=== PATIENT | female | born 1995 | race Caucasian/White ===

== ENCOUNTER 2017-11-10 20:03 | Outpatient (CLI) | payer OTHER, MEDICAID, SELFPAY | END 2017-11-10 21:15 | disposition home or self-care (01) | LOC: OB 11-12 08:52 | PROVIDERS: Family Provider Specialist; PCP Physician Assistant; Visit Provider Family Medicine | DX: Z34.83 Encounter for supervision of other normal pregnancy, third trimester (principal); Z3A.30 30 weeks gestation of pregnancy | CPT/HCPCS: 59025; G0378; G0379 ==

== ENCOUNTER → 2017-12-09 13:24 | Outpatient (CLI) | payer OTHER, MEDICAID, SELFPAY ==
--- NOTE | 2017-12-09 13:27 | DI.US.S_ITS ---
PROCEDURE: US OB >= 14 WEEKS FETUS INDICATIONS: ANATOMY OUTSIDE/PRIOR DATING DATA: Last menstrual period (LMP): 03/26/17. LMP-based estimated date of delivery (MARVIN): 12/31/17. First dating scan (date and location): 05/22/17 Estimated date of delivery (MARVIN) from first dating scan: 01/17/18. TECHNIQUE: Real-time scanning was performed of the fetus, with image documentation and biometric measurements. Endovaginal scanning: No COMPARISON: None. FINDINGS: General: A single living intrauterine gestation is present. Presentation: Vertex. Placenta: Placental position is anterior, without previa. Amniotic fluid index: 14.7 cm, normal range is 5-24 cm. heart rate: 130 beats per minute. Maternal cervical canal: 4 point cm long. Normal lower limit is 2.5 cm. biometrics: Biparietal diameter: 37 weeks Head circumference: 37 weeks 2 days Abdominal circumference: 34 weeks 4 days Femur length: 34 weeks 3 days Estimated gestational age from initial scan: 34 weeks 3 days Composite gestational age from present scan: 35 weeks 6 days Estimated weight and percentile: 2579 g; 63rd percentile Measurement variability for biometric dating: +/- 7 days from 14 weeks to 15 weeks 6 days gestation, +/- 10 days from 16 weeks to 21 weeks 6 days gestation, +/- 2 weeks from 22 weeks to 27 weeks 6 days gestation, +/- 3 weeks for 28 weeks gestation or later. weight reference: 4500 g or EFW >90/95% is considered macrosomia or large for gestational age. EFW <10% is small for gestational age. EFW 5% or less is considered intra-uterine growth restriction. Anatomic survey: Neuro: Not well-visualized. Nuchal skin fold: Not well-visualized. Face: Well-visualized. Spine: No evidence for spina bifida. Heart: 4-chambered heart is present, with normal ventricular outflow tracts. Diaphragm: Diaphragm is intact. Stomach: Left-sided stomach is present. Kidneys: No hydronephrosis. Normal is less than 5 mm in 2nd trimester, less than 7 mm in 3rd trimester. Cord: 3-vessel cord has orthotopic insertion. Bladder: Normal in size. Extremities: All 4 extremities identified. IMPRESSION: 1. Normal interval growth. 2. Anatomic survey as above. Dictated by: Casey JONES Interpreted: El Earl MD on 12/09/2017 at 15:27 Approved by: Lei Earl M.D. on 12/09/2017 at 16:28
== END ==
PROVIDERS: Family Provider Specialist; PCP Physician Assistant; Visit Provider Specialist
DX: Z36.89 Encounter for other specified antenatal screening (principal); Z3A.35 35 weeks gestation of pregnancy
CPT/HCPCS: 76811

== ENCOUNTER → 2017-12-16 16:54 | Outpatient (CLI) | payer OTHER, MEDICAID, SELFPAY ==
[2017-12-17 16:13] LABS: Strep Grp B PCR NEG for Grp B Strep
== END ==
PROVIDERS: Family Provider Specialist; PCP Physician Assistant; Visit Provider Specialist
DX: Z34.83 Encounter for supervision of other normal pregnancy, third trimester (principal); Z3A.35 35 weeks gestation of pregnancy
CPT/HCPCS: 87653

== ENCOUNTER → 2017-12-25 15:55 | Outpatient (CLI) | payer OTHER, MEDICAID, SELFPAY ==
[2017-12-26 15:53] LABS: Strep Grp B PCR NEG for Grp B Strep
== END ==
PROVIDERS: Family Provider Specialist; PCP Physician Assistant; Visit Provider Specialist
DX: Z34.03 Encounter for supervision of normal first pregnancy, third trimester (principal)
CPT/HCPCS: 87653

== ENCOUNTER 2018-01-02 12:32 | Observation (INO) | payer OTHER, MEDICAID, SELFPAY ==
--- NOTE | 2018-01-02 13:09 | PM.OBTRLD ---
Visit Information Visit Information Date of evaluation: 01/02/18 Primary OB Provider: Amelia Szymanski Reason for Evaluation: Yes non-stress test PFSH Medical History ADHD (attention deficit hyperactivity disorder) (Chronic) Anxiety (Chronic) Depression (Chronic) Migraines (Chronic) PCOS (polycystic ovarian syndrome) (Chronic) Abnormal Pap smear of cervix (Resolved) Surgical History Anesthesia (Resolved) Elective (Resolved ~2013) Review of Systems Review of Systems Patient is not felt the baby move for 12 hr. No contractions. No leakage of fluid. Exam Vital Signs (past 8 hours): Blood pressure 111/66, pulse 97, temperature 97.8? Objective Imaging US - abdomen: My impression: The early grade 3 changes the placenta. BENJI is greater than 10. breathing motion seen. Vertex in OP position. Evaluation Evaluation Baseline heart rate: 135 Variability: Moderate (11-25) monitor accelerations: Present monitor decelerations: Absent Contraction Frequency (minutes): 0 Diagnosis, Plan/Disposition Final Diagnosis (1) Decreased movement affecting management of mother, antepartum: Current Visit: No Status: Acute (2) 37 weeks gestation of : Current Visit: No Status: Acute Plan/Disposition Plan: Patient with no feeling of movement for the last 12 hr but reactive nonstress test and normal BENJI with breathing seen on ultrasound. Patient is reassured she is to call though she is continued to not feel movement through tomorrow.
== END 2018-01-02 13:22 | disposition home or self-care (01) ==
LOC: LABOR 12:35
PROVIDERS: Admitting Provider Specialist; Family Provider Specialist; PCP Physician Assistant; Visit Provider Specialist
DX: O36.8130 Decreased fetal movements, third trimester, not applicable or unspecified (principal); Z3A.37 37 weeks gestation of pregnancy
CPT/HCPCS: 59025; 76815; G0378; G0379

== ENCOUNTER 2018-01-08 19:55 | Observation (INO) | payer OTHER, MEDICAID, SELFPAY ==
--- NOTE | 2018-01-09 17:30 | PM.OBTRLD ---
Visit Information Visit Information Date of evaluation: 01/08/18 Primary OB Provider: Amelia Szymanski On-call OB Provider: Amelia Szymanski Reason for Evaluation: Yes rule out labor PFSH Medical History ADHD (attention deficit hyperactivity disorder) (Chronic) Anxiety (Chronic) Depression (Chronic) Migraines (Chronic) PCOS (polycystic ovarian syndrome) (Chronic) Abnormal Pap smear of cervix (Resolved) Surgical History Anesthesia (Resolved) Elective (Resolved ~2013) Evaluation Evaluation Baseline heart rate: 125 Variability: Moderate (11-25) monitor accelerations: Present monitor decelerations: Absent Contraction Frequency (minutes): 0 Non-invasive Membranes Rupture Test: negative Diagnosis, Plan/Disposition Final Diagnosis (1) Primiparous in third trimester: Current Visit: No Status: Chronic (2) 37 weeks gestation of : Current Visit: No Status: Acute Plan/Disposition Plan: Patient came in concerned she may have ruptured membranes but testing was negative. Reactive nonstress test and no contractions. Home with precautions. Follow-up at routine OB appointment OB Disposition: home
== END 2018-01-08 20:45 | disposition home or self-care (01) ==
LOC: LABOR 19:59
PROVIDERS: Admitting Provider Specialist; Family Provider Specialist; PCP Physician Assistant; Visit Provider Specialist
DX: Z03.71 Encounter for suspected problem with amniotic cavity and membrane ruled out (principal); Z3A.38 38 weeks gestation of pregnancy
CPT/HCPCS: 59025; 84112; G0378; G0379

== ENCOUNTER 2018-01-12 08:23 | Outpatient (CLI) | payer OTHER, MEDICAID, SELFPAY | END 2018-01-12 09:28 | disposition home or self-care (01) | LOC: OB 01-13 15:24 | PROVIDERS: Family Provider Specialist; PCP Specialist; Visit Provider Obstetrics & Gynecology | DX: Z34.03 Encounter for supervision of normal first pregnancy, third trimester (principal); Z3A.39 39 weeks gestation of pregnancy | CPT/HCPCS: 59025; 59050; G0378; G0379 ==

== ENCOUNTER 2018-01-18 17:02 | Observation (INO) | payer OTHER, MEDICAID, SELFPAY ==
[2018-01-18] MEDS: miSOPROStol 25 MCG TABLET VAG (17:54)
== END 2018-01-18 19:08 | disposition home or self-care (01) ==
PROVIDERS: Admitting Provider Specialist; Family Provider Specialist; PCP Specialist; Visit Provider Specialist
DX: Z34.83 Encounter for supervision of other normal pregnancy, third trimester (principal); Z3A.40 40 weeks gestation of pregnancy
CPT/HCPCS: 59025; 59050; 59200; G0378; G0379

== ENCOUNTER 2018-01-19 12:22 | Observation (INO) | payer OTHER, MEDICAID, SELFPAY ==
[2018-01-19] MEDS: miSOPROStol 25 MCG TABLET VAG (13:18)
== END 2018-01-19 14:15 | disposition home or self-care (01) ==
LOC: LABOR 12:24
PROVIDERS: Admitting Provider Specialist; PCP Specialist; Visit Provider Specialist
DX: Z34.83 Encounter for supervision of other normal pregnancy, third trimester (principal); Z3A.40 40 weeks gestation of pregnancy
CPT/HCPCS: 59025; 59050; 59200; G0378; G0379

== ENCOUNTER 2018-01-20 08:34 | Inpatient (IN) | payer OTHER, MEDICAID, SELFPAY ==
--- NOTE | 2018-01-20 08:43 | PM.OBTRLD ---
Visit Information Visit Information Date of evaluation: 01/18/18 Primary OB Provider: Amelia Szymanski Reason for Evaluation: Yes other Comments/Additional reasons for admission: Prostaglandin ripening of the cervix Vital Signs Vital Signs: Blood pressure 122/67, pulse 94, temperature 36.5? PFSH Medical History ADHD (attention deficit hyperactivity disorder) (Chronic) Anemia (Chronic) Anxiety (Chronic) Asthma (Chronic) Bulimia (Chronic) Chronic headaches (Chronic) Depression (Chronic) History of heavy periods (Chronic) Irregular periods/menstrual cycles (Chronic) Keratosis pilaris (Chronic) Migraines (Chronic) Ovarian cyst (Chronic) PCOS (polycystic ovarian syndrome) (Chronic) Painful menstrual periods (Chronic) Plantar warts (Chronic) Psoriasis (Chronic) Abnormal Pap smear of cervix (Resolved) Chlamydia (Resolved) Surgical History Anesthesia (Resolved) Elective (Resolved ~2013) Family History Mother Mental health problem Evaluation Evaluation Baseline heart rate: 140 Variability: Moderate (11-25) monitor accelerations: Present monitor decelerations: Absent Contraction Frequency (minutes): 5 Uterine Contraction Intensity: Mild Category of Tracing: I Cervical dilation (cm): 1 Cervical effacement (%): 30 station: -2 Diagnosis, Plan/Disposition Final Diagnosis (1) 40 weeks gestation of : Current Visit: Yes Status: Acute (2) Primiparous in third trimester: Current Visit: No Status: Chronic Plan/Disposition Plan: Patient is 40 weeks by and is needing to leave [facility] and 6 days, moving to [place]. She was brought in for prostaglandin ripening of of her cervix. OB Disposition: home
--- NOTE | 2018-01-20 08:49 | P.TNLD_ITS ---
Visit Information Visit Information Date of evaluation: 01/18/18 Primary OB Provider: Amelia Szymanski Reason for Evaluation: Yes other Comments/Additional reasons for admission: Prostaglandin ripening of the cervix Vital Signs Vital Signs: Blood pressure 122/67, pulse 94, temperature 36.5? PFSH Medical History ADHD (attention deficit hyperactivity disorder) (Chronic) Anemia (Chronic) Anxiety (Chronic) Asthma (Chronic) Bulimia (Chronic) Chronic headaches (Chronic) Depression (Chronic) History of heavy periods (Chronic) Irregular periods/menstrual cycles (Chronic) Keratosis pilaris (Chronic) Migraines (Chronic) Ovarian cyst (Chronic) PCOS (polycystic ovarian syndrome) (Chronic) Painful menstrual periods (Chronic) Plantar warts (Chronic) Psoriasis (Chronic) Abnormal Pap smear of cervix (Resolved) Chlamydia (Resolved) Surgical History Anesthesia (Resolved) Elective (Resolved ~2013) Family History Mother Mental health problem Evaluation Evaluation Baseline heart rate: 140 Variability: Moderate (11-25) monitor accelerations: Present monitor decelerations: Absent Contraction Frequency (minutes): 5 Uterine Contraction Intensity: Mild Category of Tracing: I Cervical dilation (cm): 1 Cervical effacement (%): 30 station: -2 Diagnosis, Plan/Disposition Final Diagnosis (1) 40 weeks gestation of : Current Visit: Yes Status: Acute (2) Primiparous in third trimester: Current Visit: No Status: Chronic Plan/Disposition Plan: Patient is 40 weeks by and is needing to leave [facility] and 6 days, moving to [place]. She was brought in for prostaglandin ripening of of her cervix. OB Disposition: home
--- NOTE | 2018-01-20 08:51 | PM.OBTRLD ---
Visit Information Visit Information Date of evaluation: 01/19/18 Primary OB Provider: Amelia Szymanski Comments/Additional reasons for admission: Prostaglandins ripening of the cervix. Patient is 40 weeks gestation in for her attempt at induction due to patient moving in 5 days. Vital Signs Vital Signs: Blood pressure 122/61, pulse 88, temperature 97.1? PFSH Medical History ADHD (attention deficit hyperactivity disorder) (Chronic) Anemia (Chronic) Anxiety (Chronic) Asthma (Chronic) Bulimia (Chronic) Chronic headaches (Chronic) Depression (Chronic) History of heavy periods (Chronic) Irregular periods/menstrual cycles (Chronic) Keratosis pilaris (Chronic) Migraines (Chronic) Ovarian cyst (Chronic) PCOS (polycystic ovarian syndrome) (Chronic) Painful menstrual periods (Chronic) Plantar warts (Chronic) Psoriasis (Chronic) Abnormal Pap smear of cervix (Resolved) Chlamydia (Resolved) Surgical History Anesthesia (Resolved) Elective (Resolved ~2013) Family History Mother Mental health problem Evaluation Evaluation Baseline heart rate: 130 Variability: Moderate (11-25) monitor accelerations: Present monitor decelerations: Absent Contraction Frequency (minutes): 8 Uterine Contraction Intensity: Mild Category of Tracing: I Cervical dilation (cm): 1 Cervical effacement (%): 80 station: -3 Diagnosis, Plan/Disposition Final Diagnosis (1) 40 weeks gestation of : Current Visit: Yes Status: Acute (2) Primiparous in third trimester: Current Visit: No Status: Chronic Plan/Disposition Plan: Patient was discharged home after her prostataglandin placement. Patient is to follow up in a.m.. OB Disposition: home
--- NOTE | 2018-01-20 08:55 | PM.OBHP.1 ---
OB HPI Date/Time Date of admission: 01/20/18 Date Patient Seen: 01/20/18 Time Patient Seen: 08:56 History of Present Illness Chief complaint: OBS : 3 Para: 0 Estimated Date of Delivery: 01/17/18 Estimated Gestational Age (weeks): 40 Narrative: Ethan Al is a 22 year old female admitted for induction due the fact that she is moving in 4 days. Indications Indication for induction OB: other (Patient is moving to [place] in 4 days) History of Present care: good care Dating criteria: LMP confirmed by 1st trimester US Ultrasounds: normal mid trimester US Obstetrical complications: none Medical complications: none Preadmission Labs Blood type: A (+) positive -: Antibody screen: negative, GBS status: negative, HBsAG: negative, HIV: negative and RPR/VDLR: negative -: Chlamydia screen: not detected and Gonorrhea screen: not detected -: Rubella: not immune and Varicella: immune HCAB: negative PAP: Abnormal (Low-grade dysplasia) Quad screen: Normal Evaluation Evaluation Cervical dilation (cm): 1 Cervical effacement (%): 80 station: -2 PFSH Medical History ADHD (attention deficit hyperactivity disorder) (Chronic) Anemia (Chronic) Anxiety (Chronic) Asthma (Chronic) Bulimia (Chronic) Chronic headaches (Chronic) Depression (Chronic) History of heavy periods (Chronic) Irregular periods/menstrual cycles (Chronic) Keratosis pilaris (Chronic) Migraines (Chronic) Ovarian cyst (Chronic) PCOS (polycystic ovarian syndrome) (Chronic) Painful menstrual periods (Chronic) Plantar warts (Chronic) Psoriasis (Chronic) Abnormal Pap smear of cervix (Resolved) Chlamydia (Resolved) Surgical History Anesthesia (Resolved) Elective (Resolved ~2013) Family History Mother Mental health problem Social History Smoking Status: Never smoker alcohol intake: never substance use type: does not use Meds Allergies Allergy/AdvReac Type Severity Reaction Status Date / Time No Known Drug Allergies Allergy Verified 01/18/18 17:45 Review of Systems Review of Systems Patient denies headaches, scotomata, epigastric pain. No leakage of fluid but passed her mucus plug yesterday. Mild irregular contractions. Good movement. All systems reviewed & are unremarkable except as noted in HPI and below Exam Narrative Exam Narrative: HEENT exam within normal limits. Lungs are clear to auscultation and percussion. Heart is regular rate and rhythm no S3-S4 or murmurs. Abdomen is soft, nontender. Assessment and Plan (1) 40 weeks gestation of : Current visit: Yes Status: Acute (2) Primiparous in third trimester: Current visit: No Status: Chronic Plan: Term with patient moving out of state and 4 days admitted for Pitocin induction.
[2018-01-20] MEDS: CALCIUM CARBONATE 500 MG TAB 1000 MG PO ×3 (10:11→18:05)
[2018-01-20 10:15] LABS: Add Manual Diff / Slide Review NO; Basophils Percent Auto 0.7 % (0-2); Eosinophils Percent Auto 0.9 % (2-4); Hematocrit 33.5 % (36-46); Hemoglobin 11.5 g/dL (12.0-16.0); Lymphocytes Percent Auto 17.7 % (25-40); Mean Corpuscular HGB Conc 34.2 % (30-36); Mean Corpuscular Hemoglobin 31.2 PG (26-34); Mean Corpuscular Volume 91.2 fL (80-100); Monocytes Percent Auto 11.7 % (3-14); Neutrophils Absolute Auto 5500 /uL (3000-5900); Platelet Count 310 X10^3/uL (150-400); Red Blood Cell Count 3.67 X10^6/uL (4.0-5.2); Red Cell Distribution Width 13.8 % (11.6-14.8)
[2018-01-20] MEDS: LACTATED RINGERS 1,000 ML 100 ML IV ×2 (10:15→15:34)
[2018-01-20] MEDS: OXYTOCIN PREMIX 30 UNIT/500 ML PLAST..BAG IV (10:19)
[2018-01-20 11:41] VITALS: BP 108/57
--- NOTE | 2018-01-20 13:15 | PM.OBPNLAB ---
Date/Time Date Patient Seen: 01/20/18 Time Patient Seen: 13:15 Pain Control Pain control: tolerating well Pelvic Exam Dilation (cm): 3 (2-3) Effacement (%): 80 station: -1 Amniotic membrane status: Leaking Contractions Contractions on admission: regular Monitor mode: External Pitocin rate (mU/min): 12 Contraction frequency (min): 3 Contraction pattern: Regular Contraction intensity: Moderate Status status: Category l Heart Rate Baseline: 130 Monitor Accelerations: Present Monitor Decelerations: Absent Monitor Variability: Moderate Assessment and Plan Assessment: induction ongoing Plan: continuous present management Comments: Rupture of membranes meconium stained fluid.
[2018-01-20] MEDS: ONDANSETRON 4 MG/2 ML INJ IV (19:37)
--- NOTE | 2018-01-20 20:07 | PM.OBPNLAB ---
Date/Time Date Patient Seen: 01/20/18 Pain Control Pain control: epidural Pelvic Exam Dilation (cm): 5 Effacement (%): 80 station: -1 Amniotic membrane status: Leaking Contractions Contractions on admission: regular Monitor mode: External Pitocin rate (mU/min): 12 Contraction frequency (min): 3 Contraction pattern: Regular Contraction intensity: Moderate Status status: Category l Heart Rate Baseline: 135 Monitor Accelerations: Present Monitor Decelerations: Absent Monitor Variability: Moderate Comments: Re-evaluated. Nurse examined 5-6 cm. Leaking fluid mild meconium. Category 1 tracing on Pitocin.
--- NOTE | 2018-01-20 20:11 | P.PNOB_ITS ---
Date/Time Date Patient Seen: 01/20/18 Pain Control Pain control: tolerating well and epidural Pelvic Exam Dilation (cm): 6 Effacement (%): 80 station: -1 Amniotic membrane status: Leaking Contractions Monitor mode: External Contraction frequency (min): 3 Contraction pattern: Regular Contraction intensity: Moderate Status status: Category l Heart Rate Baseline: 135 Monitor Accelerations: Present Monitor Decelerations: Variable Monitor Variability: Minimal Comments: Called by nurse concerned that maybe patient was complete. Re- examined the patient still 5-6 cm. Tolerating labor well. Although noticing some variable and possible early D cells. Pitocin stopped. Position changes implemented IV fluid bolus given oxygen provided. Continue to closely monitor.
--- NOTE | 2018-01-20 20:35 | SUR.OPER ---
Supine on Padded OR bed, head on pillow, safety belt at thigh, arms secured on padded arm boards at <90 degrees abduction. Bump under right buttock. Legs uncrossed with pillow under knees, gel pad to heels, tape over blanket to lower legs.
[2018-01-20] MEDS: CEFOTETAN 2 GM/50 ML PIGGYBACK IV (20:41)
--- NOTE | 2018-01-20 21:16 | SUR.OPER ---
VIABLE FEMALE DELIVERED AT 2055. COED BLOOD AND PLACENTA TO OB WITH RN
[2018-01-20] MEDS: LACTATED RINGERS 1,000 ML 42 ML IV (21:21)
[2018-01-20 21:35] VITALS: BP 111/92; PULSE 84; RESP 14; TEMP 37.6; O2SAT 98
[2018-01-20] MEDS: MEPERIDINE 50 MG/ML 25 MG IV (21:35)
--- NOTE | 2018-01-20 21:36 | P.OP_ITS ---
Operative Notes Procedure in detail: Procedure: Lower segment transverse section Consent: Verbal and written informed consent were obtained from the patient placed on the chart. Indications: 22-year-old G1 para 0 at 40 weeks and for 7 stays Findings: Normal uterus normal ovaries Female Apgars 9 and 9 Anesthesia: Epidural Surgeon: Dr. Joey Faith Family Welfare Social Work Professor: Dr. honorio Szymanski Estimated blood loss: 500 mL Drains: Purdy to gravity. IV fluids: 1800 cc LR Description of procedure: The patient was brought to the operating room after her spinal epidural, preparation, and Purdy had been performed. The abdomen was prepped and draped in tested for for analgesia. When it was found to be adequate, a lower abdominal Pfannenstiel incision was made with first with a knife and cared down to the fascia with a second knife. The fascia was incised in the midline and extended laterally with a knife. Bleeding points were clamped with hemostats and Bovie coagulated. The rectus muscles were by blunt dissection. The rectus muscles were divided in the midline and the peritoneum was grasped with hemostats and carefully entered with Benavidez scissors. The incision was extended bilaterally. The bladder blade was then placed. The vesicoperitoneum was grasped with smooth pickups, entered with Metzenbaum scissors, and extended laterally. The bladder flap was created by gently blunt dissection and placed behind the bladder blade. The lower uterine segment was noted to be thin was carefully incised with the scalpel and extended laterally with the fingers. A live infant was found to be in the direct OP position. The head was then easily elevated with the hand. Head was delivered with the use of a vacuum. The baby was then suctioned and cried immediately, and was handed to the waiting attendant. The placenta was delivered manually. The uterus was explored with a wet lap sponge and found to be clear membranes. The first layer of the uterine closure was with running locking #1 chromic catgut suture. The second layer with an imbricating #1 chromic catgut suture. Hemostasis was carefully checked and found to be satisfactory. The bladder flap was closed with a running 2-0 chromic catgut suture. The fallopian tubes and ovaries were inspected and to be found normal bilaterally. After sponge and needle counts were found to be correct the peritoneum was closed with 2-0 chromic catgut suture. Rectus muscles were approximated in the lower midline. Th e fascia was closed with a 2 running 0 Vicryl from lateral to midline. The subcutaneous tissue was approximated with interrupted 2.0 plain gut. Bleeding points were Bovie and coagulated. The subcutaneous tissue was approximated with 20 plain gut suture. The skin was closed with 1-0 running subcuticular stitch. Urinary output was adequate and normal patient left to the recovery room in good condition.
[2018-01-20 21:40] VITALS: BP 111/64; PULSE 82; RESP 21; TEMP 37.5; O2SAT 98
[2018-01-20 21:45] VITALS: BP 119/74; PULSE 82; RESP 14; TEMP 37.1; O2SAT 98
[2018-01-20 21:55] VITALS: BP 117/71; PULSE 87; RESP 14; TEMP 37.1; O2SAT 98
[2018-01-20] MEDS: ACETAMINOPHEN 325 MG TABLET 650 MG PO (23:55)
[2018-01-21] MEDS: LACTATED RINGERS 1,000 ML 100 ML IV (00:01)
[2018-01-21 03:30] VITALS: TEMP 36.9
[2018-01-21] MEDS: KETOROLAC 30 MG/ML VIAL IV ×3 (03:30→15:23)
--- NOTE | 2018-01-21 06:58 | PM.OBPN.1 ---
Subjective - OB Patient comments: incisional pain [place] baby status: doing well [place] feeding status: exclusively breast feeding Narrative: Postoperative day 1. due to failure to progress. Mom did well overnight. Mild incisional pain. Vital signs have been stable. Mild nausea. Bleeding has been well controlled. No significant incisional bleeding. SCDs were removed last night is patient was up walking. Purdy catheter was also removed. No difficulty with urination.. Mom's tolerated a little bit of diet. Mom says breast-feeding is going well. Date Patient Seen: 01/21/18 Time Patient Seen: 06:58 Exam Vital Signs (past 8 hours): - 01/21/18 03:30 Temperature 98.4 F Oxygen Delivery Method Room Air Narrative Exam Narrative: General: Alert no apparent distress. Affect is appropriate. Mary it is uncomfortable. HEENT: Neck is supple without lymphadenopathy pupils equal round and reactive. Cardio: S1-S2 regular rate and rhythm. Respiratory: Lungs clear to auscultation. Abdomen: Uterus firm. Incision clean dry and intact. Extremities: Normal deep tendon reflexes trace edema. Objective Labs Result Diagrams: 01/20/18 09:50 Labs: Laboratory Results - last 24 hr 01/20/18 01/20/18 09:50 09:50 WBC 8.0 RBC 3.67 L Hgb 11.5 L Hct 33.5 L MCV 91.2 MCH 31.2 MCHC 34.2 RDW 13.8 Plt Count 310 Neut % (Auto) 69.0 Lymph % (Auto) 17.7 L [place] % (Auto) 11.7 Eos % (Auto) 0.9 L Baso % (Auto) 0.7 Neut # (Auto) 5500 Blood Type A Positive Antibody Screen Negative Assessment & Plan (1) 40 weeks gestation of : Status: Acute Current Visit: Yes (2) Primiparous in third trimester: Status: Chronic Current Visit: No Plan plan OB: routine postop care Comments: day 1. It went tolerating diet. Purdy catheter has been removed SCDs have been removed. Pain is well controlled. Working on breast-feeding. Incision is clean and dry intact. Mild incisional discomfort. Vital signs are stable afebrile. Blood counts are also stable. Time Spent With Patient Total time spent is greater than 50% in coordination of care (as documented) at patient's floor/unit and/or counseling patient: 25 - 35 minutes
[2018-01-21] MEDS: ACETAMINOPHEN 325 MG TABLET 650 MG PO (08:20)
[2018-01-21] MEDS: DOCUSATE 250 MG CAPSULE PO (09:22)
[2018-01-21] MEDS: OXYCODONE/ACETAMINOPHEN 5/325 TABLET 1 TAB PO (14:23)
[2018-01-21] MEDS: OXYCODONE/ACETAMINOPHEN 5/325 TABLET 2 TAB PO ×2 (18:53→22:51)
[2018-01-21] MEDS: IBUPROFEN 600 MG TABLET PO (21:40)
[2018-01-22 03:04] VITALS: BP 117/71; PULSE 87; RESP 14; TEMP 36.9
[2018-01-22] MEDS: OXYCODONE/ACETAMINOPHEN 5/325 TABLET 2 TAB PO ×5 (03:19→19:44)
[2018-01-22] MEDS: IBUPROFEN 600 MG TABLET PO ×4 (03:19→23:24)
[2018-01-22 04:04] VITALS: BP 117/71; PULSE 87; RESP 14; TEMP 36.9
[2018-01-22] MEDS: DOCUSATE 250 MG CAPSULE PO (09:29)
--- NOTE | 2018-01-22 09:30 | PM.DS.1 ---
History of Present Illness Chief complaint: LABOR & DELIVERY Discharge Providers Date of admission: 01/20/18 08:34 Primary care physician: Amelia Szymanski MD Consults: 01/20/18 22:03 Consult to Client Service Supervisor Routine Comment: Discharge provider: Joey Faith MD Summary Discharge Diagnosis: Admission for induction of labor section due to stage 1 failure to progress Routine post care Hospital Course: Admitted to the hospital. Patient had induction of labor. Started on Pitocin received an epidural. Patient went to 6 cm dilated. Despite adequate contractions. Patient made no further progress. Pitocin was increased and then baby had variable and early deceleration. Due to this meconium. Patient to at after continued no progression was delivered via . she did well. She was eating tolerating her diet bleeding was well controlled incision was clean and dry and intact. She was not having difficulty with vaginal bleeding. Breast-feeding was going well. Exam Vital Signs (past 8 hours): Oxygen Delivery Method Room Air Narrative Exam Narrative: Vitals: [Pulse 68 respiratory rate 18 temperature 9 8.8 input 2400 output 1800]. General: Alert no apparent distress. Affect is appropriate. Mary it is uncomfortable. HEENT: Neck is supple without lymphadenopathy pupils equal round and reactive. Cardio: S1-S2 regular rate and rhythm. Respiratory: Lungs clear to auscultation. Abdomen: Uterus firm. Incision clean dry and intact. Extremities: Normal deep tendon reflexes trace edema. Objective Labs Result Diagrams: 01/20/18 09:50 Discharge Plan Discharge Med Rec/Prescriptions Prescriptions: New hydrocodone-acetaminophen 5-325 mg tablet 2 tab PO Q6-8H PRN (Reason: pain) Qty: 30 RF: 0 docusate sodium 100 mg capsule 100 mg PO BID Qty: 30 RF: 0 ibuprofen 600 mg tablet 600 mg PO TID PRN (Reason: pain) Qty: 30 RF: 3 Discharge Orders: Discharge (Order); Ordered 01/22/18 Ordered By: Joey Faith Discharge Data Primary Care Provider: Amelia Szymanski Attending Provider: Amelia Szymanski Admit Date/Time: 01/20/18 08:34
--- NOTE | 2018-01-22 13:26 | PM.PN.1 ---
Subjective Date Patient Seen: 01/22/18 Time Patient Seen: 13:26 Interval history: Discussed with patient her history of depression, her planned moved away from this area and increased risk for depression. Discussed possibly starting antidepressant medication. Discussed pros and cons of antidepressant medication and breast-feeding. Patient thought that Wellbutrin worked best for her in the past although when she tried taking it during this it made her worse. After discussion the patient decided she would prefer to try a SSRI. Exam Vital Signs (past 8 hours): Oxygen Delivery Method Room Air Objective Labs Result Diagrams: 01/20/18 09:50 Assessment & Plan (1) Reactive depression: Current visit: No Status: None (2) Anxiety: Current visit: No Status: Acute Plan: Assessment/Plan Narrative: Will start the patient on 25 mg of Zoloft. Will increase to 50 mg after 3 days. As patient is moving if she is unable to find a physician she will keep in contact with us until she can get someone to evaluate and prescribe her medication.
[2018-01-23] MEDS: OXYCODONE/ACETAMINOPHEN 5/325 TABLET 2 TAB PO ×4 (00:18→13:27)
--- NOTE | 2018-01-23 07:35 | P.PN_ITS ---
Subjective Date Patient Seen: 01/23/18 Time Patient Seen: 07:33 Interval history: Patient did well overnight. Decided not to go home. This was mainly due to lateness of the . Overall she is feeling good. Breast-feeding is going well she is eating she is ambulating. Mild incisional brain. She is okay. Anticipating a long drive to [place] her couple of days. We discussed importance of multiple stops. Every 2-3 hours get out car walk discussed about increased risk of blood clots after having a baby. Had a discussion yesterday with Dr. Szymanski about depression. Blister back on anti anxiety medication. Exam Vital Signs (past 8 hours): Oxygen Delivery Method Room Air Narrative Exam Narrative: General: Alert no apparent distress. Affect is appropriate. Mary it is uncomfortable. HEENT: Neck is supple without lymphadenopathy pupils equal round and reactive. Cardio: S1-S2 regular rate and rhythm. Respiratory: Lungs clear to auscultation. Abdomen: Uterus firm. Incision clean dry and intact. Extremities: Normal deep tendon reflexes trace edema. Objective Labs Result Diagrams: 01/20/18 09:50 Assessment & Plan Plan: Assessment/Plan Narrative: day 3. Status post doing well. Discharged home today. Something incision check in 10 days. Discussed about the follow-up as far as that goes. As she will be in [place]. Questions were answered. Continue with current antianxiety medication pain medication ibuprofen and stool softener were written for.
[2018-01-23] MEDS: DOCUSATE 250 MG CAPSULE PO (07:53)
[2018-01-23] MEDS: IBUPROFEN 600 MG TABLET PO ×2 (07:54→15:30)
[2018-01-23] MEDS: SERTRALINE 25 MG TABLET PO (07:55)
[2018-01-23] MEDS: MEASLES,MUMPS,RUBELLA VACC/PF 0.5 ML VIAL SUBCUT (15:27)
== END 2018-01-23 17:00 | disposition home or self-care (01) | DRG 540 ==
PROVIDERS: Family Medicine; Admitting Provider Specialist; PCP Specialist; Visit Provider Specialist
PROC: 10D00Z1 Extraction of Products of Conception, Low, Open Approach (ICD-10-PCS; CPT 59514; principal; 2018-01-20 20:35)
DX: O77.0 Labor and delivery complicated by meconium in amniotic fluid (principal); O62.1 Secondary uterine inertia; Z3A.40 40 weeks gestation of pregnancy; Z37.0 Single live birth; O76 Abnormality in fetal heart rate and rhythm complicating labor and delivery; O99.344 Other mental disorders complicating childbirth; F32.9 Major depressive disorder, single episode, unspecified; F41.9 Anxiety disorder, unspecified
CPT/HCPCS: 01967; 01968; 59025; 59050; 59200; 59514; 85025; 86850; 86900; 86901; G0378; G0379; J1885; J2175; J2274; J2405; J2590; J3010